=== PATIENT | female | born 1965 | race Caucasian/White ===

== ENCOUNTER 2017-01-24 16:13 | Emergency (ER) | payer OTHER ==
[~2017-01-24] VITALS: Ht 170.1 cm; Wt 90.7 kg
[~2017-01-24 16:13] MED LIST: AMOXICILLIN500 MG PO; AVALIDE; CATAPRES0.1 MG PO; DARVOCET N 1001 TAB PO; DAYPRO600 M1 PO; DIFLUCAN150 MG PO; Fioricet 325 MG1 TAB PO; HCTZ-METOPROLOL1 TA2 PO; HYDROCHLOROTH12.5 M3 PO; HYDROCODONE BIT1 T11 PO; KEFLEX500 MG PO; LISINOPRIL20 MG PO; LOSARTAN POTASS50 M1; SIMVASTATIN20 MG PO; SYNTHROID0.075 MG PO; TOPAMAX25 M1 PO; TOPAMAX50 MG PO; VICODIN 500 MG-1 TAB PO; VICODIN ES 7501 TAB PO; XANAX0.5 MG; ZOFRAN ODT4 MG SL
[2017-01-24] MEDS ORDERED: LEVOTHYROXIN0.075 M1 PO (16:21)
[2017-01-24] MEDS ORDERED: LOSARTAN POTAS100 M1 PO (16:22)
[2017-01-24] MEDS ORDERED: NEURONTIN300 MG PO (16:22)
[2017-01-24] MEDS ORDERED: CYCLOBENZAPRINE10 MG PO (16:22)
[2017-01-24 16:42] LABS: BASO # 0.1 10*3/uL (0.0-0.1); BASO % 0.7 % (0.0-1.0); EOS # 0.3 10*3/uL (0.0-0.4); EOS % 2.6 % (1.0-4.0); HEMATOCRIT 42.3 % (37.0-47.0); HEMOGLOBIN 14.2 g/dl (12.0-16.0); LYMPH # 3.2 10*3/uL (1.3-4.4); LYMPH % 30.8 % (27.0-41.0); MEAN CELL VOLUME 98.4 fl (81.0-99.0); MEAN CORPUSCULAR HGB CONC 33.6 g/dl (33.0-37.0); MEAN PLATELET VOLUME 11.4 fl (9.6-12.3); MONO # 0.8 10*3/uL (0.1-1.0); MONO % 7.8 % (3.0-9.0); NEUT # 6.1 10*3/uL (2.3-7.9); NEUT % 57.8 % (47.0-73.0); PLATELET COUNT AUTOMATED 207 10*3/uL (130-400); RED CELL DISTRI WIDTH 13.1 % (0-14.5); WHITE BLOOD COUNT 10.5 10*3/uL (4.8-10.8)
[2017-01-24 16:58] LABS: ALBUMIN 3.7 gm/dl (3.1-4.5); ALKALINE PHOSPHATASE 103 U/L (45-117); BILIRUBIN, TOTAL 0.3 mg/dl (0.2-1.0); BUN 12 mg/dl (7-24); CARBON DIOXIDE 25 mmol/L (21-32); CHLORIDE 106 mmol/L (98-107); EST GLOM FILT AFRICAN AMERICAN > 60 ml/min; GLUCOSE 96 mg/dL (65-99); SGOT/AST 50 IU/L (3-35); SGPT/ALT 50 U/L (12-78); SODIUM 141 mmol/L (136-145); TOTAL PROTEIN 7.3 gm/dL (6.4-8.2)
[2017-01-24 16:59] LABS: BILIRUBIN NEGATIVE (NEGATIVE); BLOOD 3+ (NEGATIVE); CLARITY CLOUDY (CLEAR); COLOR YELLOW (YELLOW); GLUCOSE NEGATIVE (NEGATIVE); KETONE NEGATIVE (NEGATIVE); LEUKO ESTERASE 3+ (NEGATIVE); NITRITE POSITIVE (NEGATIVE); PH 6.5 (5.0-9.0); PROTEIN 1+ (NEGATIVE); SPECIFIC GRAVITY 1.015 (1.005-1.030); UROBILINOGEN 0.2 E.U./dl (0.2-1.0)
[2017-01-24 17:05] LABS: BACTERIA 3+; RBC TNTC rbc/hpf (0-2); URINE REFLEX COMMENT YES (NO); WBC TNTC wbc/hpf (0-5)
[2017-01-24] MEDS ORDERED: ZOFRAN4 MG PO (17:09)
[2017-01-24] MEDS ORDERED: MACROBID100 M1 PO (17:09)
[2017-01-24] MEDS ORDERED: PYRIDIUM200 M1 PO (17:09)
== END 2017-01-24 17:13 | disposition home or self-care (01) ==
LOC: ED 16:13
PROVIDERS: Nurse Practitioner Family
DX: N39.0 Urinary tract infection, site not specified (principal); R31.9 Hematuria, unspecified; R03.0 Elevated blood-pressure reading, without diagnosis of hypertension; G43.909 Migraine, unspecified, not intractable, without status migrainosus; F17.200 Nicotine dependence, unspecified, uncomplicated; Z98.890 Other specified postprocedural states; Z79.899 Other long term (current) drug therapy; Z91.041 Radiographic dye allergy status

== ENCOUNTER → 2017-02-04 | Outpatient (CLI) | payer OTHER ==
[~2017-02-04] MED LIST changes: +CYCLOBENZAPRINE10 MG PO; +LEVOTHYROXIN0.075 M1 PO; +LOSARTAN POTAS100 M1 PO; +MACROBID100 M1 PO; +NEURONTIN300 MG PO; +PYRIDIUM200 M1 PO; +ZOFRAN4 MG PO
== END | disposition home or self-care (01) ==
LOC: US 14:00
DX: I65.23 Occlusion and stenosis of bilateral carotid arteries (principal)

== ENCOUNTER 2017-04-21 18:41 | Inpatient (IN) | payer OTHER ==
[2017-04-21] VITALS (9 sets, daily range): BP systolic 116–173; BP diastolic 68–86
[~2017-04-21] VITALS: Ht 170.1 cm; Wt 91.2 kg
--- NOTE | ~2017-04-21 | PR ---
[place], [place] PROGRESS NOTE NAME: REDDY FISCHER [facility] #: [id number] UNIT #: [id number] ROOM: 426 DOCTOR: CARLA FLANAGAN MD BIRTHDATE: [birth year] DOS: 04/23/2017 SUBJECTIVE: The patient is sitting up in chair. Denies any specific cardiac complaint. No chest pain, no shortness of breath, no symptomatic palpitation. OBJECTIVE: VITAL SIGNS: Blood pressure 104/52, heart rate 69, respiratory rate of 14, temperature 98.1. NECK: Good upstroke, no bruit. HEART: S1, S2 with no rub. LUNGS: Clear to auscultation. EXTREMITIES: Lower extremities, no edema. LABORATORY DATA: Troponin negative x 3. White count 9.4, hemoglobin 14.8. Potassium 4.2. GFR more than 60%. Normal thyroid function test. ASSESSMENT AND PLAN: 1. Current presentation with chest pain. So far, the stress test has been negative for ischemia with normal LV function. Echocardiogram confirmed also normal LV size and function with no evidence of wall motion abnormalities. The patient's vital signs do not allow any anti-ischemic medication at this time. From the cardiac point of view, I will continue to watch carefully. Should there be any change in symptoms, we will be considering either CTA of the coronaries or cardiac catheterization. 2. Headache with diplopia in a patient who had history of brain aneurysm . I will defer further workup to primary team. 3. The patient can be discharged home from the Cardiology point of view. Follow up with us within 1-2 weeks as an outpatient. CARLA FLANAGAN MD CM:PNTRANS [id number] CARLA FLANAGAN MD 04/23/17 1432 interface
--- NOTE | ~2017-04-21 | ST ---
[place], [place] EXERCISE STRESS TEST REPORT NAME: REDDY FISCHER [facility] #: [id number] UNIT #: [id number] ROOM: 426 DOCTOR: CARLA FLANAGAN MD BIRTHDATE: [birth year] DOS: 04/22/2017 INDICATION: Chest pain. PROCEDURE: The patient was brought into the stress lab. The procedure was explained with risks, benefits, and alternatives. Lexiscan was injected. The patient tolerated the procedure well. Resting blood pressure 138/82 with ending blood pressure 140/64. ELECTROCARDIOGRAM INTERPRETATION: The resting electrocardiogram showing sinus bradycardia, heart rate of 55. Following the infusion, there was no evidence of any significant ST or T-wave changes suggestive of myocardial ischemia. No arrhythmias were noted. SUMMARY: 1. Adequate Lexiscan stress test. 2. Negative Lexiscan stress test for stress-induced myocardial ischemia. 3. No arrhythmias were noted. 4. Nuclear images will be reported separately. CARLA FLANAGAN MD CM:STRESS:EXERCISE STRESS TEST REPORT [id number] CARLA FLANAGAN MD
--- NOTE | ~2017-04-21 | CON ---
[place], [place] REPORT OF CONSULTATION NAME: REDDY FISCHER [facility] #: [id number] UNIT #: [id number] ROOM: 426 DOCTOR: CARLA FLANAGAN MD BIRTHDATE: [birth year] DOS: REQUESTING PHYSICIAN: Dr. Lopez. REASON FOR CONSULTATION: Chest pain. ASSESSMENT: 1. Current presentation with worsening complaint of chest pain that has been going on for years. 2. Headache, blurry vision and diplopia. 3. History of brain aneurysm, status post closure with ____ at [facility] 4 years ago (no records available). 4. Hypertension. 5. Hyperlipidemia. 6. Hypothyroidism. 7. Obesity with high probability of sleep apnea (reported loud snoring). 8. Known case of IVP DYE ALLERGY. 9. Active tobacco abuse. 10. Significant early family history of heart disease. PLAN: 1. Cycle cardiac enzymes. 2. Keep patient n.p.o. for a Lexiscan stress test. 3. Enteric coated aspirin 81 mg. 4. No option for beta jen in view patient profound bradycardia on presentation. 5. Vital sign does not support any meds such as Imdur/nitroglycerin. 6. Consider Neurology consultation and workup for the patient complains of blurry vision and diplopia. 7. Cardiac catheterization will be considered for continue cardiac complaint. 8. Smoking cessation. 9. Highly consider sleep study to rule out obstructive sleep apnea. 10. Early followup upon discharge with our clinic here in [place] within 1-2 weeks. HISTORY AND PHYSICAL: The patient is a pleasant 51-year-old female unknown to our practice, was referred by Dr. Lopez for further evaluation with complaint of chest pain that apparently has been going on for the past 10 years. The pain is left-sided substernal. It is heavy and wax and wane off and on every few weeks and occasionally months in the past. Over the past few days, the patient has significant increase in frequency and intensity of these episodes. Now, it appears to be steady. It did reach almost 8/10. The patient started getting slightly nauseated and diaphoretic. Never had any vomiting. The pain has no relation to activity. Again over the past few days, it had been quite steady. It does wax and wane between 5 and 8. The patient sleeps on one pillow with no reported PND, orthopnea or pedal edema. Denies any symptomatic palpitation or any associated dizziness, lightheadedness or near syncope. No PND, orthopnea or pedal edema. The patient does report loud snoring. The patient reporting some weight gain recently, even though she maintains stable appetite. [place], [place] REPORT OF CONSULTATION NAME: REDDY FISCHER UNIT #: [id number] ROOM: 426 DOCTOR: CARLA FLANAGAN MD BIRTHDATE: [birth year] FAMILY HISTORY: The patient's mother at age 75 of pancreatic cancer, but had bypass surgery in her 50s. Her father had his bypass surgery at age 62. Her brother suddenly at age 47 of myocardial infarction. She has still one more brother alive. No sister, though. CURRENT MEDICATIONS: On presentation include Lexapro, Zocor, Cozaar, hydrochlorothiazide, aspirin, Protonix, Synthroid, Xanax, [place], Dulcolax, MOM and aspirin. ALLERGIES: THE PATIENT IS ALLERGIC TO IVP DYE. REVIEW OF SYSTEMS: Currently, the patient denies any headache, diplopia or blurry vision. Denies any headache. Admit to diplopia and blurry vision. No fever, no chills. The patient admits or night sweats. No abdominal pain, no bright red blood per rectum or tarry stools. The patient admits to joint pain and muscular pain. The patient admits to anxiety and depression. No polyuria, no polydipsia, no skin rash. Review of all other systems has been negative. PHYSICAL EXAMINATION: GENERAL: The patient is alert, oriented x 3, quite pleasant. The patient sitting up in a chair, does not appear in any distress. VITAL SIGNS: Blood pressure 119/61, heart rate 56, respiratory rate of 14, temperature 98.2. HEENT: Extraocular muscles intact. Pupils equal, round, and reactive to light. Conjunctivae: No pallor. Throat: No petechiae. NECK: Good carotid upstroke. Unable to appreciate any bruit, no lymphadenopathy, no thyromegaly. HEART: S1, S2 with distant heart sound. ABDOMEN: Unable to appreciate any masses or bruits. LOWER EXTREMITIES: No significant edema with faint distal pulses. NEUROLOGIC: Grossly nonfocal. SKIN: No significant rash. LABORATORY DATA: White count 10.0, hemoglobin 14.9. Chemistry: Potassium 3.5, creatinine 0.71, GFR more than 60%. Troponin less than 0.015. CARLA FLANAGAN MD CM:CONSTR:REPORT OF CONSULTATION 1209 04/23/17 0534 interface
[2017-04-21 19:02] LABS: BASO # 0.1 10*3/uL (0.0-0.1); BASO % 0.8 % (0.0-1.0); EOS # 0.3 10*3/uL (0.0-0.4); EOS % 2.5 % (1.0-4.0); HEMATOCRIT 45.7 % (37.0-47.0); HEMOGLOBIN 15.6 g/dl (12.0-16.0); LYMPH # 4.4 10*3/uL (1.3-4.4); LYMPH % 36.5 % (27.0-41.0); MEAN CELL VOLUME 98.1 fl (81.0-99.0); MEAN CORPUSCULAR HGB 33.5 pg (27.0-31.0); MEAN CORPUSCULAR HGB CONC 34.1 g/dl (33.0-37.0); MEAN PLATELET VOLUME 11.1 fl (9.6-12.3); MONO # 0.8 10*3/uL (0.1-1.0); MONO % 6.6 % (3.0-9.0); NEUT # 6.4 10*3/uL (2.3-7.9); NEUT % 53.4 % (47.0-73.0); PLATELET COUNT AUTOMATED 223 10*3/uL (130-400); RED BLOOD COUNT 4.66 10*6/uL (4.10-5.10); RED CELL DISTRI WIDTH 13.7 % (0-14.5); WHITE BLOOD COUNT 12.1 10*3/uL (4.8-10.8)
[2017-04-21 19:15] LABS: PROTHROMBIN TIME 10.7 SECONDS (9.0-12.4)
[2017-04-21 19:20] LABS: ALBUMIN 4.1 gm/dl (3.1-4.5); ALKALINE PHOSPHATASE 102 U/L (45-117); BILIRUBIN, TOTAL 0.3 mg/dl (0.2-1.0); BUN 11 mg/dl (7-24); CARBON DIOXIDE 21 mmol/L (21-32); CHLORIDE 104 mmol/L (98-107); EST GLOM FILT AFRICAN AMERICAN > 60 ml/min; GLUCOSE 94 mg/dL (65-99); MAGNESIUM 2.2 mg/dL (1.5-2.1); POTASSIUM 4.3 mmol/L (3.5-5.1); SGOT/AST 92 IU/L (3-35); SGPT/ALT 70 U/L (12-78); SODIUM 135 mmol/L (136-145); TOTAL PROTEIN 8.5 gm/dL (6.4-8.2)
[2017-04-21 19:21] LABS: TROPONIN I < 0.015 ng/ml (<0.045)
[2017-04-21] MEDS ORDERED: ASPIRIN ADULT L81 M1 PO (22:55)
[2017-04-21] MEDS ORDERED: COLACE100 MG PO (22:56)
[2017-04-21] MEDS ORDERED: NORCO 5-325 TA1 EACH PO (22:57)
[2017-04-22] VITALS: BP 120/69
[2017-04-22 05:13] LABS: BASO # 0.1 10*3/uL (0.0-0.1); BASO % 0.7 % (0.0-1.0); EOS # 0.4 10*3/uL (0.0-0.4); EOS % 3.6 % (1.0-4.0); HEMATOCRIT 45.2 % (37.0-47.0); HEMOGLOBIN 14.9 g/dl (12.0-16.0); LYMPH # 4.4 10*3/uL (1.3-4.4); LYMPH % 43.8 % (27.0-41.0); MEAN CELL VOLUME 99.8 fl (81.0-99.0); MEAN CORPUSCULAR HGB 32.9 pg (27.0-31.0); MEAN PLATELET VOLUME 11.7 fl (9.6-12.3); MONO # 0.6 10*3/uL (0.1-1.0); MONO % 5.7 % (3.0-9.0); NEUT # 4.6 10*3/uL (2.3-7.9); NEUT % 45.9 % (47.0-73.0); PLATELET COUNT AUTOMATED 191 10*3/uL (130-400); RED BLOOD COUNT 4.53 10*6/uL (4.10-5.10); RED CELL DISTRI WIDTH 13.8 % (0-14.5)
[2017-04-22 05:34] LABS: BUN 10 mg/dl (7-24); CARBON DIOXIDE 25 mmol/L (21-32); CHLORIDE 102 mmol/L (98-107); CHOLESTEROL 233 mg/dL (<200); EST GLOM FILT AFRICAN AMERICAN > 60 ml/min; FREE T4 0.86 ng/dl (0.76-1.46); GLUCOSE 105 mg/dL (65-99); HDL CHOLESTEROL 37 mg/dl (40-60); LDL CHOLESTEROL 133 mg/dL (9-159); POTASSIUM 3.5 mmol/L (3.5-5.1); SODIUM 137 mmol/L (136-145); TRIGLYCERIDES 314 mg/dl (<150); VLDL CHOLESTEROL 63 mg/dL (6-40)
[2017-04-22 07:05] LABS: FOLIC ACID 8.92 ng/mL (>5.38)
[2017-04-22 07:07] LABS: HEMOGLOBIN A1c 5.3 % (4.8-5.6)
[2017-04-22 08:00] VITALS: BP 119/61
[2017-04-22 12:00] VITALS: BP 126/76
[2017-04-22 15:30] VITALS: BP 98/66
[2017-04-22 16:00] VITALS: BP 118/57
[2017-04-22 20:00] VITALS: BP 106/58
[2017-04-23] VITALS: BP 116/55
[2017-04-23 05:52] LABS: BASO # 0.1 10*3/uL (0.0-0.1); BASO % 0.7 % (0.0-1.0); EOS # 0.3 10*3/uL (0.0-0.4); EOS % 3.5 % (1.0-4.0); HEMATOCRIT 44.4 % (37.0-47.0); HEMOGLOBIN 14.8 g/dl (12.0-16.0); LYMPH # 3.9 10*3/uL (1.3-4.4); LYMPH % 41.8 % (27.0-41.0); MEAN CELL VOLUME 101.6 fl (81.0-99.0); MEAN CORPUSCULAR HGB 33.9 pg (27.0-31.0); MEAN CORPUSCULAR HGB CONC 33.3 g/dl (33.0-37.0); MEAN PLATELET VOLUME 11.5 fl (9.6-12.3); MONO # 0.7 10*3/uL (0.1-1.0); NEUT # 4.4 10*3/uL (2.3-7.9); NEUT % 46.8 % (47.0-73.0); PLATELET COUNT AUTOMATED 200 10*3/uL (130-400); RED BLOOD COUNT 4.37 10*6/uL (4.10-5.10); RED CELL DISTRI WIDTH 13.6 % (0-14.5); WHITE BLOOD COUNT 9.4 10*3/uL (4.8-10.8)
[2017-04-23 05:55] LABS: BUN 11 mg/dl (7-24); CARBON DIOXIDE 29 mmol/L (21-32); CHLORIDE 105 mmol/L (98-107); EST GLOM FILT AFRICAN AMERICAN > 60 ml/min; GLUCOSE 103 mg/dL (65-99); POTASSIUM 4.2 mmol/L (3.5-5.1); SODIUM 140 mmol/L (136-145)
[2017-04-23 08:00] VITALS: BP 104/52
[2017-04-23 12:00] VITALS: BP 110/53
[2017-04-23 16:00] VITALS: BP 106/65
[2017-04-23] MEDS ORDERED: NITROSTAT0.4 MG SL (16:25)
[2017-04-24 08:09] LABS: RHEUMATOID ARTHRITIS FACTOR <10.0 IU/mL (0.0-13.9)
== END 2017-04-23 17:00 | disposition home or self-care (01) | DRG 313 ==
LOC: ED 18:41 → EDHOLD 19:42 → 4E 19:42
PROVIDERS: Emergency Medicine; Family Medicine; Internal Medicine
PROC: 4A02XM4 Measurement of Cardiac Total Activity, External Approach (ICD-10-PCS; principal; 2017-04-22)
PROC: 3E073KZ Introduction of Other Diagnostic Substance into Coronary Artery, Percutaneous Approach (ICD-10-PCS; 2017-04-22)
DX: R07.89 Other chest pain (principal); I10 Essential (primary) hypertension; E03.9 Hypothyroidism, unspecified; E78.5 Hyperlipidemia, unspecified; G43.119 Migraine with aura, intractable, without status migrainosus; D72.829 Elevated white blood cell count, unspecified; F17.210 Nicotine dependence, cigarettes, uncomplicated; E66.9 Obesity, unspecified; Z71.6 Tobacco abuse counseling; Z87.440 Personal history of urinary (tract) infections; Z98.1 Arthrodesis status; Z68.31 Body mass index [BMI] 31.0-31.9, adult; Z90.49 Acquired absence of other specified parts of digestive tract; Z91.041 Radiographic dye allergy status; Z79.82 Long term (current) use of aspirin; Z79.899 Other long term (current) drug therapy; Z82.49 Family history of ischemic heart disease and other diseases of the circulatory system; Z80.0 Family history of malignant neoplasm of digestive organs

== ENCOUNTER 2018-07-11 19:14 | Emergency (ER) | payer OTHER ==
[~2018-07-11] VITALS: Ht 170.1 cm; Wt 90.7 kg
[~2018-07-11 19:14] MED LIST changes: +ASPIRIN ADULT L81 M1 PO; +COLACE100 MG PO; +KEFLEX500 M1 PO; +NITROSTAT0.4 MG SL; +NORCO 5-325 TA1 EACH PO
== END 2018-07-11 20:19 | disposition home or self-care (01) ==
LOC: ED 19:14
DX: Z48.00 Encounter for change or removal of nonsurgical wound dressing (principal); I10 Essential (primary) hypertension; E03.9 Hypothyroidism, unspecified; G43.909 Migraine, unspecified, not intractable, without status migrainosus; F17.200 Nicotine dependence, unspecified, uncomplicated; Z91.041 Radiographic dye allergy status; Z79.899 Other long term (current) drug therapy

== ENCOUNTER 2018-07-27 22:28 | Emergency (ER) | payer OTHER ==
[~2018-07-27] VITALS: Ht 170.1 cm
== END 2018-07-27 23:29 | disposition home or self-care (01) ==
LOC: ED 22:28
DX: M79.604 Pain in right leg (principal); F17.200 Nicotine dependence, unspecified, uncomplicated; Z48.01 Encounter for change or removal of surgical wound dressing; Z91.041 Radiographic dye allergy status; Z79.899 Other long term (current) drug therapy; Z90.49 Acquired absence of other specified parts of digestive tract

== ENCOUNTER 2018-10-06 04:12 | Emergency (ER) | payer OTHER ==
[~2018-10-06] VITALS: Ht 170.1 cm; Wt 90.7 kg
[2018-10-06] MEDS ORDERED: ATARAX,VISTARIL50 MG PO (04:45)
[2018-10-06] MEDS ORDERED: FLUCONAZOLE100 MG PO (04:46)
== END 2018-10-06 05:42 | disposition home or self-care (01) ==
LOC: ED 04:12
DX: L30.9 Dermatitis, unspecified (principal); L30.4 Erythema intertrigo; E78.5 Hyperlipidemia, unspecified; I10 Essential (primary) hypertension; E03.9 Hypothyroidism, unspecified; G43.909 Migraine, unspecified, not intractable, without status migrainosus; F17.200 Nicotine dependence, unspecified, uncomplicated; Z91.041 Radiographic dye allergy status; Z79.899 Other long term (current) drug therapy; Z90.49 Acquired absence of other specified parts of digestive tract

== ENCOUNTER 2018-11-13 12:26 | Emergency (ER) | payer OTHER ==
[~2018-11-13] VITALS: Ht 170.1 cm; Wt 86.2 kg
[~2018-11-13 12:26] MED LIST changes: +ATARAX,VISTARIL50 MG PO; +FLUCONAZOLE100 MG PO
[2018-11-13 13:05] LABS: BASO # 0.1 10*3/uL (0.0-0.1); EOS # 0.4 10*3/uL (0.0-0.4); EOS % 4.6 % (1.0-4.0); HEMATOCRIT 38.7 % (37.0-47.0); HEMOGLOBIN 12.5 g/dl (12.0-16.0); LYMPH # 2.7 10*3/uL (1.3-4.4); LYMPH % 30.4 % (27.0-41.0); MEAN CELL VOLUME 102.7 fl (81.0-99.0); MEAN CORPUSCULAR HGB 33.2 pg (27.0-31.0); MEAN CORPUSCULAR HGB CONC 32.3 g/dl (33.0-37.0); MEAN PLATELET VOLUME 11.3 fl (9.6-12.3); MONO # 0.6 10*3/uL (0.1-1.0); MONO % 6.5 % (3.0-9.0); NEUT # 5.1 10*3/uL (2.3-7.9); NEUT % 57.3 % (47.0-73.0); PLATELET COUNT AUTOMATED 128 10*3/uL (130-400); RED BLOOD COUNT 3.77 10*6/uL (4.10-5.10); RED CELL DISTRI WIDTH 13.8 % (0-14.5); WHITE BLOOD COUNT 8.8 10*3/uL (4.8-10.8)
[2018-11-13] MEDS ORDERED: CLARITIN10 MG PO (13:16)
[2018-11-13] MEDS ORDERED: PEPCID20 MG PO (13:16)
[2018-11-13] MEDS ORDERED: MEDROL DOSEPAK4 MG PO (13:16)
[2018-11-13 13:30] LABS: ALBUMIN 3.1 gm/dl (3.1-4.5); ALKALINE PHOSPHATASE 139 U/L (45-117); BUN 10 mg/dl (7-24); CHLORIDE 109 mmol/L (98-107); CREATININE 0.84 mg/dL (0.55-1.02); POTASSIUM 3.7 mmol/L (3.5-5.1); SGOT/AST 83 IU/L (3-35); SGPT/ALT 63 U/L (12-78); SODIUM 142 mmol/L (136-145); TOTAL PROTEIN 6.4 gm/dL (6.4-8.2)
[2019-01-07] MEDS ORDERED: Bactroban Oint22 GM T (00:48)
[2019-01-07] MEDS ORDERED: VISTARIL25 MG PO (01:09)
== END 2018-11-13 14:09 | disposition home or self-care (01) ==
LOC: ED 12:26
PROVIDERS: Emergency Medicine
DX: R21 Rash and other nonspecific skin eruption (principal); L29.9 Pruritus, unspecified; L53.9 Erythematous condition, unspecified; E78.5 Hyperlipidemia, unspecified; I10 Essential (primary) hypertension; E03.9 Hypothyroidism, unspecified; F17.200 Nicotine dependence, unspecified, uncomplicated; Z91.041 Radiographic dye allergy status; Z79.899 Other long term (current) drug therapy

== ENCOUNTER → 2018-11-15 | Outpatient (CLI) | payer OTHER ==
[~2018-11-15] MED LIST changes: +AMBIEN5 MG PO; +Bactroban Oint22 GM T; +CLARITIN10 MG PO; +CORTISONE28 GM T; +DOXYCYCLINE100 M3 PO; +GUANFACINE HCL1 MG PO; +HYDR25T PO; +HYDROXYZINE HCL25 MG PO; +LAMICTAL150 MG PO; +LEVETIRACETAM500 MG PO; +MEDROL DOSEPAK4 MG PO; +PEPCID20 MG PO; +PREDNISONE10 MG PO; +RITALIN10 MG PO; +SANTYL30 GM T; +VISTARIL25 MG PO; +VITAMIN C500 M4 PO; +XANAX0.25 MG PO
== END | disposition home or self-care (01) ==
LOC: WOUNDCARE 04:21
DX: S91.031A Puncture wound without foreign body, right ankle, initial encounter (principal); I10 Essential (primary) hypertension; E03.9 Hypothyroidism, unspecified; G43.909 Migraine, unspecified, not intractable, without status migrainosus; E78.5 Hyperlipidemia, unspecified; F17.200 Nicotine dependence, unspecified, uncomplicated; F10.20 Alcohol dependence, uncomplicated; X58.XXXA Exposure to other specified factors, initial encounter; Y93.89 Activity, other specified; Y92.89 Other specified places as the place of occurrence of the external cause; Y99.8 Other external cause status

== ENCOUNTER → 2018-11-22 | Outpatient (CLI) | payer OTHER | END | disposition home or self-care (01) | LOC: WOUNDCARE 02:07 | DX: S91.001D Unspecified open wound, right ankle, subsequent encounter (principal); E78.5 Hyperlipidemia, unspecified; I10 Essential (primary) hypertension; E03.9 Hypothyroidism, unspecified; G43.909 Migraine, unspecified, not intractable, without status migrainosus; F17.200 Nicotine dependence, unspecified, uncomplicated; Z87.81 Personal history of (healed) traumatic fracture; X58.XXXD Exposure to other specified factors, subsequent encounter ==

== ENCOUNTER → 2018-12-20 | Outpatient (CLI) | payer OTHER | END | disposition home or self-care (01) | LOC: WOUNDCARE 02:38 | DX: S91.001D Unspecified open wound, right ankle, subsequent encounter (principal); L03.115 Cellulitis of right lower limb; I10 Essential (primary) hypertension; E78.5 Hyperlipidemia, unspecified; E03.9 Hypothyroidism, unspecified; G43.909 Migraine, unspecified, not intractable, without status migrainosus; D72.829 Elevated white blood cell count, unspecified; F17.200 Nicotine dependence, unspecified, uncomplicated; Z87.81 Personal history of (healed) traumatic fracture; X58.XXXD Exposure to other specified factors, subsequent encounter ==

== ENCOUNTER 2019-01-10 02:01 | Inpatient (IN) | payer OTHER ==
[~2019-01-10] VITALS: Ht 170.2 cm; Wt 95.7 kg
[~2019-01-10 02:01] MED LIST changes: -AMBIEN5 MG PO; -CORTISONE28 GM T; -DOXYCYCLINE100 M3 PO; -GUANFACINE HCL1 MG PO; -HYDR25T PO; -HYDROXYZINE HCL25 MG PO; -LAMICTAL150 MG PO; -LEVETIRACETAM500 MG PO; -PREDNISONE10 MG PO; -RITALIN10 MG PO; -SANTYL30 GM T; -VITAMIN C500 M4 PO; -XANAX0.25 MG PO
--- NOTE | 2019-01-10 13:15 | NUR ---
A 53, admitted to , under the services of AMY Mckeon DO with a diagnosis of CELLULITIS. Chief complaint is RASH T/O BODY, C/O ITCHING, WOUND TO RIGHT ANKLE. Patient arrived via wheel chair from [place]. Monitor applied. Initial assessment completed. Vital signs taken and recorded. AMY MCKEON DO notified of admission to the unit. Orders received. See assessment for past medical history, medications and allergies. Patient and/or family oriented to unit. [facility]. Clothing/patient valuable form completed. ASHLEY ANDREWS
[2019-01-10 13:36] VITALS: BP 126/80
[2019-01-10] MEDS ORDERED: HYDR25T PO (14:10)
[2019-01-10] MEDS ORDERED: RITALIN10 MG PO (14:11)
[2019-01-10] MEDS ORDERED: LEVETIRACETAM500 MG PO (14:12)
[2019-01-10] MEDS ORDERED: GUANFACINE HCL1 MG PO (14:13)
[2019-01-10] MEDS ORDERED: LAMICTAL150 MG PO (14:14)
[2019-01-10] MEDS ORDERED: VITAMIN C500 M4 PO (14:14)
[2019-01-10] MEDS ORDERED: CYCLOBENZAPRINE10 MG PO (14:15)
[2019-01-10] MEDS ORDERED: AMBIEN5 MG PO (14:17)
[2019-01-10] MEDS ORDERED: XANAX0.25 MG PO (14:18)
[2019-01-10] MEDS ORDERED: SANTYL30 GM T (14:19)
[2019-01-10] MEDS ORDERED: HYDROXYZINE HCL25 MG PO (14:19)
[2019-01-10] MEDS ORDERED: DOXYCYCLINE100 M3 PO (14:20)
[2019-01-10 14:47] LABS: BASO # 0.1 10*3/uL (0.0-0.1); EOS # 0.7 10*3/uL (0.0-0.4); HEMATOCRIT 44.2 % (37.0-47.0); HEMOGLOBIN 14.6 g/dl (12.0-16.0); LYMPH # 3.2 10*3/uL (1.3-4.4); LYMPH % 34.2 % (27.0-41.0); MEAN CORPUSCULAR HGB 34.4 pg (27.0-31.0); MEAN PLATELET VOLUME 11.2 fl (9.6-12.3); MONO # 0.9 10*3/uL (0.1-1.0); MONO % 9.3 % (3.0-9.0); NEUT # 4.4 10*3/uL (2.3-7.9); NEUT % 47.3 % (47.0-73.0); PLATELET COUNT AUTOMATED 145 10*3/uL (130-400); RED BLOOD COUNT 4.25 10*6/uL (4.10-5.10); RED CELL DISTRI WIDTH 13.8 % (0-14.5); WHITE BLOOD COUNT 9.2 10*3/uL (4.8-10.8)
[2019-01-10 15:08] LABS: ALBUMIN 3.6 gm/dl (3.1-4.5); ALKALINE PHOSPHATASE 108 U/L (45-117); BUN 17 mg/dl (7-24); CHLORIDE 107 mmol/L (98-107); CREATININE 0.65 mg/dL (0.55-1.02); POTASSIUM 3.9 mmol/L (3.5-5.1); SGOT/AST 53 IU/L (3-35); SGPT/ALT 49 U/L (12-78); SODIUM 139 mmol/L (136-145)
[2019-01-10 16:00] VITALS: BP 131/65
--- NOTE | 2019-01-10 17:50 | NUR ---
PT MEDICATED WITH BENEDRYL FOR COMPLAINTS OF ITCHING. WILL MONITOR.
[2019-01-10 20:00] VITALS: BP 117/59
--- NOTE | 2019-01-10 21:30 | NUR ---
IN ROOM WITH DR. GIRON TO LOOK OVER RASH. PATIENT ITCHING AND NOT BEING ABLE TO REST. NEW ORDER FOR BENADRYL 50. AND SOLUMEDROL. RASH ON FACE, RT BREAST IS OOZING, RT LEG, TORSO.
--- NOTE | 2019-01-10 21:50 | NUR ---
BENADRYL GIVEN. WILL MONITOR AND REASSESS.
--- NOTE | 2019-01-10 22:18 | NUR ---
24 HR chart check completed.
--- NOTE | 2019-01-10 22:52 | NUR ---
PATIENT STILL HAVING SEVERE ITCHING AFTER BENADRYL. ICE PACKS WERE GIVEN TO HELP WITH ITCHING. I STOPPED THE INFUSING IV VANCO FOR A SHORT TIME TO SEE IF THE ITCHING STOPPED, BUT IT CONTINUED TO GET WORSE. PATIENT ALSO STATED THAT HER FAMILY HAS HAD A PROBLEM WITH STAPH INFECTION, AND WAS WANDERING IF THAT WAS THE CASE.
[2019-01-11] VITALS: BP 119/54
--- NOTE | 2019-01-11 05:23 | NUR ---
REDDY FISCHER [id number] Please refer to the physician's history and physical for past medical history, comorbid conditions, and allergies. Diagnosis: NON HEALING WOUND RIGHT ANKLE ALLERGIC REACTION Polo Score: 22,LOW OR NO RISK WOUND DESCRIPTIONS: Wound Number: 1 Location of the wound: right medial aspect of ankle Type of wound: traumatic Thickness: Full Size: 1.4cm x 0.9cm x 0.4cm Tunneling: none Undermining: none Sinus Tract: none Presence of Exudate: Serosanguineous Amount: Light Color: Yellow, red Odor: None Periwound Skin Appearance: rash Wound edges: approximated Pain (associated with wound): none at time of assessment pt states area if very itchy How does patient state this happened? pt stated she had surgery then had a fusion which the area was scarred then bumped the scar last february and is still open now. Patient right breast has rash patchy rash noted which is draining serosanguineous. Patient states the areas are very itchy and she stated that the right breast just started draining. The area is also to the left eye and around face. Left eye is has swelling noted. No drainage to face at this time. Patient stated when she was given steriods that the pain and itchy was so much more intense. Patient stated the area is now moving toward her abdomen which it was not there yesterday. Surface the patient is resting on: Isoflex SKIN PREVENTION RECOMMENDATION: 1. Pressure redistribution support surface as appropriate 2. Elevate heels 3. Remove boots/TEDS every shift and reapply 4. Head of bed 30 degrees as tolerated 5. Assess nutrition and hydration 6. Manage moisture 7. Avoid the use of containment devices while in bed 8. Use absorptive products on surfaces limit layers of linens on bed 9. Turn and reposition every 1-2 hours in bed and every 1 hour in chair as tolerated 10. Weight shifts every 15 minutes while up in chair 11. Offloading with pillows or device to keep heels elevated off bed 12. Monitor skin at least every shift 13. Inspect under medical devices twice a day WOUND TREATMENT RECOMMENDATIONS: Consult ID for rash. Full thickness guidelines: Cleanse right medial aspect of ankle with nss and apply sureprep around the wound therahoney to wound bed cover with 2x2 then wrap with kerlix every other day and prn for soiling. Dr. Moreno is already on consult since patient follows with him in the wound care center. Follow up with dermatology upon d/c for rash. Follow up with real estate loan processor regarding area noted to left eye.
--- NOTE | 2019-01-11 05:34 | NUR ---
PATIENT UP MOST OF THE NIGHT ITCHING, BENADRYL NOT EFFECTIVE.
--- NOTE | 2019-01-11 05:38 | NUR ---
Spoke with Dr. Phillips regarding patient rash and arterial studies. He stated Dr. Moreno was aware.
[2019-01-11 06:36] LABS: BASO % 0.2 % (0.0-1.0); EOS % 0.3 % (1.0-4.0); HEMATOCRIT 42.9 % (37.0-47.0); HEMOGLOBIN 14.4 g/dl (12.0-16.0); LYMPH # 1.4 10*3/uL (1.3-4.4); LYMPH % 15.3 % (27.0-41.0); MEAN CELL VOLUME 103.4 fl (81.0-99.0); MEAN CORPUSCULAR HGB 34.7 pg (27.0-31.0); MEAN CORPUSCULAR HGB CONC 33.6 g/dl (33.0-37.0); MEAN PLATELET VOLUME 11.6 fl (9.6-12.3); MONO # 0.2 10*3/uL (0.1-1.0); MONO % 1.8 % (3.0-9.0); NEUT # 7.2 10*3/uL (2.3-7.9); NEUT % 81.6 % (47.0-73.0); PLATELET COUNT AUTOMATED 151 10*3/uL (130-400); RED BLOOD COUNT 4.15 10*6/uL (4.10-5.10); RED CELL DISTRI WIDTH 13.5 % (0-14.5); WHITE BLOOD COUNT 8.8 10*3/uL (4.8-10.8)
[2019-01-11 06:56] LABS: BUN 14 mg/dl (7-24); CHLORIDE 110 mmol/L (98-107); CREATININE 0.71 mg/dL (0.55-1.02); POTASSIUM 3.9 mmol/L (3.5-5.1); SODIUM 140 mmol/L (136-145)
[2019-01-11 08:00] VITALS: BP 137/68
--- NOTE | 2019-01-11 08:27 | NUR ---
Spoke with Dr. Moreno regarding wound care recommendations he stated he doesn't want a culture of the wound at this time. He also stated patient my need transfered to dermatology.
--- NOTE | 2019-01-11 08:39 | NUR ---
Dr. Garcia notified of wound care recommendations.
--- NOTE | 2019-01-11 08:41 | NUR ---
Dr. Garcia notified of The conversation with Dr. Moreno about no culture and possible transfer needing derm.
--- NOTE | 2019-01-11 12:09 | NUR ---
Scaffold Erector in to talk to patient. Patient states lives at HOME with WITH EX . There are FEW steps in the home. Physician: NONE Pharmacy: [facility] Home health services: NONE Patient's level of ADLs: INDEPENDENT Patient has working utilities: YES DME: NONE Follow-up physician's appointment after d/c: WILL FIND ONE AND MAKE APPOINTMENT AFTER DISCHARGE Does patient want to access PORTAL?: NO Discharge plan PT LIVES AT HOME WITH HER EXHUSBAND. STATES SHE WAS RECENTLY HOMELESS, BUT IS LIVING WITH HIM NOW. DENIES ANY NEEDS ON DISCHARGE. STATES SHE WILL HAVE A RIDE HOME. WILL CONTINUE TO FOLLOW.. KARINA KENNEDY
[2019-01-11 16:00] VITALS: BP 116/73
--- NOTE | 2019-01-11 18:18 | NUR ---
PT RESTING COMFORTABLY. SOME ANXIETY OVER CURRENT MEDICAL STATE. INFECTIOUS DISEASE CONSULTED FOR RASH. GAVE ATIVAN ORDERRED. (SEE EMAR) CONTINUING TO MONITOR.
--- NOTE | 2019-01-11 21:40 | NUR ---
PATIENT STILL ITCHING, PATIENT WORRIED ABOUT TAKING BENADRYL, ASKED FOR SOMETHING TO HELP HER RELAX AND SLEEP. XANAX WAS GIVEN. WILL MONITOR AND REASSESS.
--- NOTE | 2019-01-11 23:20 | NUR ---
PATIENT RESTING, XANAX EFFECTIVE.
[2019-01-12] VITALS: BP 112/54
--- NOTE | 2019-01-12 02:40 | NUR ---
PATIENT AWOKE WITH ITCHING, DOESNT WANT BENADRYL, STATED "I THINK THE ATIVAN WILL HELP ME RELAX AND GO BACK TO SLEEP." ATIVAN GIVEN. WILL MONITOR AND REASSESS.
--- NOTE | 2019-01-12 03:22 | NUR ---
24 HR chart check completed.
[2019-01-12 07:53] LABS: ALBUMIN 3.2 gm/dl (3.1-4.5); ALKALINE PHOSPHATASE 84 U/L (45-117); BUN 12 mg/dl (7-24); CHLORIDE 110 mmol/L (98-107); CREATININE 0.58 mg/dL (0.55-1.02); POTASSIUM 4.1 mmol/L (3.5-5.1); SGOT/AST 30 IU/L (3-35); SGPT/ALT 42 U/L (12-78); SODIUM 143 mmol/L (136-145); TOTAL PROTEIN 6.5 gm/dL (6.4-8.2)
[2019-01-12 08:00] VITALS: BP 107/52
--- NOTE | 2019-01-12 08:45 | NUR ---
MEDICATED WITH XANAX PER PRN ORDER FOR ANXIETY/ITCHING. WILL MONITOR FOR EFFECTIVENESS.
[2019-01-12] MEDS ORDERED: CORTISONE28 GM T (10:38)
[2019-01-12] MEDS ORDERED: PREDNISONE10 MG PO (10:38)
[2019-01-12] MEDS ORDERED: HYDROXYZINE HCL25 MG PO (10:38)
--- NOTE | 2019-01-12 11:13 | NUR ---
PT WILL GO HOME WITH NO NEEDS. WILL CONTINUE TO FOLLOW.
--- NOTE | 2019-01-12 13:25 | NUR ---
D/C PHOTOS OBTAINED AT THIS TIME.
--- NOTE | 2019-01-12 13:25 | NUR ---
Discharge instructions reviewed with patient/family. Patient receptive and verbalizes understanding. Follow-up care arranged. Written instructions given to patient/family. IV site removed. JOSEPHINE AL
== END 2019-01-12 13:25 | disposition home or self-care (01) | DRG 607 ==
LOC: WOUNDCARE 02:01 → 5E 12:58 → WOUNDCARE 15:25 → 5E 01-12 13:25
PROVIDERS: Internal Medicine; Student in an Organized Health Care Education/Training Program; ADMIT Internal Medicine
DX: L29.8 Other pruritus (principal); L97.919 Non-pressure chronic ulcer of unspecified part of right lower leg with unspecified severity; K59.00 Constipation, unspecified; R56.9 Unspecified convulsions; R73.9 Hyperglycemia, unspecified; I10 Essential (primary) hypertension; F41.9 Anxiety disorder, unspecified; D72.1 Eosinophilia; E03.9 Hypothyroidism, unspecified; R23.4 Changes in skin texture; E78.5 Hyperlipidemia, unspecified; L30.9 Dermatitis, unspecified; G43.909 Migraine, unspecified, not intractable, without status migrainosus; F32.9 Major depressive disorder, single episode, unspecified; F90.9 Attention-deficit hyperactivity disorder, unspecified type; T78.40XS Allergy, unspecified, sequela; Z98.1 Arthrodesis status; Z90.49 Acquired absence of other specified parts of digestive tract; Z82.49 Family history of ischemic heart disease and other diseases of the circulatory system; Z80.0 Family history of malignant neoplasm of digestive organs; Z91.041 Radiographic dye allergy status; Z79.899 Other long term (current) drug therapy

== ENCOUNTER → 2019-02-07 | Outpatient (CLI) | payer OTHER ==
[~2019-02-07] MED LIST changes: +AMBIEN5 MG PO; +CORTISONE28 GM T; +DOXYCYCLINE100 M3 PO; +GUANFACINE HCL1 MG PO; +HYDR25T PO; +HYDROXYZINE HCL25 MG PO; +LAMICTAL150 MG PO; +LEVETIRACETAM500 MG PO; +PREDNISONE10 MG PO; +RITALIN10 MG PO; +SANTYL30 GM T; +VITAMIN C500 M4 PO; +XANAX0.25 MG PO
== END | disposition home or self-care (01) ==
LOC: WOUNDCARE 01:41
DX: S91.001D Unspecified open wound, right ankle, subsequent encounter (principal); I10 Essential (primary) hypertension; E78.5 Hyperlipidemia, unspecified; E03.9 Hypothyroidism, unspecified; G43.909 Migraine, unspecified, not intractable, without status migrainosus; F17.200 Nicotine dependence, unspecified, uncomplicated; Z87.81 Personal history of (healed) traumatic fracture; X58.XXXD Exposure to other specified factors, subsequent encounter

== ENCOUNTER → 2019-02-21 | Outpatient (CLI) | payer OTHER | END | disposition home or self-care (01) | LOC: WOUNDCARE 08:31 | DX: S91.001D Unspecified open wound, right ankle, subsequent encounter (principal); I10 Essential (primary) hypertension; E78.5 Hyperlipidemia, unspecified; E03.9 Hypothyroidism, unspecified; G43.909 Migraine, unspecified, not intractable, without status migrainosus; F17.200 Nicotine dependence, unspecified, uncomplicated; Z87.81 Personal history of (healed) traumatic fracture; X58.XXXD Exposure to other specified factors, subsequent encounter ==

== ENCOUNTER → 2019-02-28 | Outpatient (CLI) | payer OTHER | END | disposition home or self-care (01) | LOC: WOUNDCARE 00:17 | DX: S91.001D Unspecified open wound, right ankle, subsequent encounter (principal); L03.115 Cellulitis of right lower limb; E78.5 Hyperlipidemia, unspecified; I10 Essential (primary) hypertension; E03.9 Hypothyroidism, unspecified; G43.909 Migraine, unspecified, not intractable, without status migrainosus; F17.200 Nicotine dependence, unspecified, uncomplicated; Z87.81 Personal history of (healed) traumatic fracture; X58.XXXD Exposure to other specified factors, subsequent encounter ==

== ENCOUNTER → 2019-03-07 | Outpatient (CLI) | payer OTHER | END | disposition home or self-care (01) | LOC: WOUNDCARE 00:11 | DX: S91.001D Unspecified open wound, right ankle, subsequent encounter (principal); L03.115 Cellulitis of right lower limb; E78.5 Hyperlipidemia, unspecified; I10 Essential (primary) hypertension; E03.9 Hypothyroidism, unspecified; G43.909 Migraine, unspecified, not intractable, without status migrainosus; Z87.81 Personal history of (healed) traumatic fracture; X58.XXXD Exposure to other specified factors, subsequent encounter ==

== ENCOUNTER 2019-06-20 17:23 | Emergency (ER) | payer OTHER ==
[~2019-06-20] VITALS: Ht 170.1 cm; Wt 90.7 kg
--- NOTE | ~2019-06-20 | EKG ---
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
--- NOTE | ~2019-06-20 | EKG ---
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
[2019-06-20 18:05] LABS: BASO # 0.1 10*3/uL (0.0-0.1); BASO % 0.7 % (0.0-1.0); EOS # 0.1 10*3/uL (0.0-0.4); EOS % 0.6 % (1.0-4.0); HEMATOCRIT 44.9 % (37.0-47.0); HEMOGLOBIN 14.9 g/dl (12.0-16.0); LYMPH # 1.2 10*3/uL (1.3-4.4); LYMPH % 13.4 % (27.0-41.0); MEAN CORPUSCULAR HGB 33.2 pg (27.0-31.0); MEAN CORPUSCULAR HGB CONC 33.2 g/dl (33.0-37.0); MONO # 0.6 10*3/uL (0.1-1.0); MONO % 7.2 % (3.0-9.0); NEUT # 6.7 10*3/uL (2.3-7.9); NEUT % 77.8 % (47.0-73.0); PLATELET COUNT AUTOMATED 105 10*3/uL (130-400); RED BLOOD COUNT 4.49 10*6/uL (4.10-5.10); RED CELL DISTRI WIDTH 14.5 % (0-14.5); WHITE BLOOD COUNT 8.6 10*3/uL (4.8-10.8)
[2019-06-20 18:18] LABS: ACT PARTIAL THROMBO TIME 25.1 SECONDS (20.0-32.1); INTERNATIONAL NORM RATIO 1.1 (2.0-3.5)
[2019-06-20 18:19] LABS: ALBUMIN 3.8 gm/dl (3.1-4.5); ALKALINE PHOSPHATASE 129 U/L (45-117); BUN 8 mg/dl (7-24); CHLORIDE 105 mmol/L (98-107); CREATININE 0.63 mg/dL (0.55-1.02); POTASSIUM 3.9 mmol/L (3.5-5.1); SGOT/AST 98 IU/L (3-35); SGPT/ALT 63 U/L (12-78); SODIUM 134 mmol/L (136-145); TOTAL PROTEIN 7.3 gm/dL (6.4-8.2)
[2019-06-20 18:20] LABS: TROPONIN I < 0.015 ng/ml (<0.045)
[2019-06-20 20:10] LABS: BILIRUBIN NEGATIVE (NEGATIVE); BLOOD NEGATIVE (NEGATIVE); CLARITY SL CLOUDY (CLEAR); COLOR YELLOW (YELLOW); GLUCOSE NEGATIVE (NEGATIVE); KETONE NEGATIVE (NEGATIVE); LEUKO ESTERASE NEGATIVE (NEGATIVE); NITRITE NEGATIVE (NEGATIVE); PH 6.5 (5.0-9.0); UROBILINOGEN 0.2 E.U./dl (0.2-1.0)
[2019-06-20 20:17] LABS: EPITHELIAL CELLS 0-2
[2019-06-20] MEDS ORDERED: LEVAQUIN750 M1 PO (22:24)
== END 2019-06-20 22:45 | disposition home or self-care (01) ==
LOC: ED 17:23
PROVIDERS: Emergency Medicine; Nurse Practitioner Family
DX: J18.1 Lobar pneumonia, unspecified organism (principal); E78.5 Hyperlipidemia, unspecified; E03.9 Hypothyroidism, unspecified; I10 Essential (primary) hypertension; G43.909 Migraine, unspecified, not intractable, without status migrainosus; F17.200 Nicotine dependence, unspecified, uncomplicated; Z91.041 Radiographic dye allergy status; Z79.899 Other long term (current) drug therapy; Z90.49 Acquired absence of other specified parts of digestive tract

== ENCOUNTER 2019-08-18 06:59 | Emergency (ER) | payer OTHER ==
[~2019-08-18] VITALS: Ht 172.7 cm; Wt 90.7 kg
[~2019-08-18 06:59] MED LIST changes: +LEVAQUIN750 M1 PO
== END 2019-08-18 09:09 | disposition home or self-care (01) ==
LOC: ED 06:59
DX: G43.909 Migraine, unspecified, not intractable, without status migrainosus (principal); E78.5 Hyperlipidemia, unspecified; I10 Essential (primary) hypertension; E03.9 Hypothyroidism, unspecified; F17.200 Nicotine dependence, unspecified, uncomplicated; Z91.041 Radiographic dye allergy status; Z79.2 Long term (current) use of antibiotics; Z79.899 Other long term (current) drug therapy; Z90.49 Acquired absence of other specified parts of digestive tract

== ENCOUNTER 2020-04-25 23:52 | Emergency (ER) | payer OTHER ==
[~2020-04-25] VITALS: Ht 170.1 cm; Wt 90.7 kg
[2020-04-26 01:37] LABS: BILIRUBIN NEGATIVE (NEGATIVE); BLOOD NEGATIVE (NEGATIVE); CLARITY CLEAR (CLEAR); COLOR YELLOW (YELLOW); GLUCOSE NEGATIVE (NEGATIVE); KETONE NEGATIVE (NEGATIVE); SPECIFIC GRAVITY 1.005 (1.005-1.030)
[2020-04-26 01:40] LABS: LEUKO ESTERASE TRACE (NEGATIVE); NITRITE NEGATIVE (NEGATIVE); UROBILINOGEN 0.2 E.U./dl (0.2-1.0)
[2020-04-26 01:44] LABS: BACTERIA TRACE; RBC 0-2 rbc/hpf (0-2)
[2020-04-26] MEDS ORDERED: ZANAFLEX2 M1 PO (02:17)
== END 2020-04-26 02:39 | disposition home or self-care (01) ==
LOC: ED 23:52
PROVIDERS: Emergency Medicine
DX: S39.012A Strain of muscle, fascia and tendon of lower back, initial encounter (principal); I10 Essential (primary) hypertension; G43.909 Migraine, unspecified, not intractable, without status migrainosus; E03.9 Hypothyroidism, unspecified; F17.200 Nicotine dependence, unspecified, uncomplicated; Z91.041 Radiographic dye allergy status; Z79.899 Other long term (current) drug therapy; X58.XXXA Exposure to other specified factors, initial encounter; Y93.44 Activity, trampolining; Y92.89 Other specified places as the place of occurrence of the external cause; Y99.8 Other external cause status

== ENCOUNTER 2020-11-06 21:14 | Inpatient (IN) | payer MEDICARE, MEDICAID ==
[~2020-11-06] VITALS: Ht 175.2 cm; Wt 89.9 kg
[~2020-11-06 21:14] MED LIST changes: +ZANAFLEX2 M1 PO
[2020-11-06 21:58] VITALS: BP 209/97
[2020-11-06 22:25] VITALS: BP 200/90
[2020-11-06 22:42] VITALS: BP 188/83
[2020-11-06 23:08] LABS: BASO # 0.1 10*3/uL (0.0-0.1); BASO % 1.4 % (0.0-1.0); EOS # 0.2 10*3/uL (0.0-0.4); EOS % 2.8 % (1.0-4.0); HEMATOCRIT 43.5 % (37.0-47.0); LYMPH # 1.8 10*3/uL (1.3-4.4); LYMPH % 28.3 % (27.0-41.0); MEAN CELL VOLUME 100.7 fl (81.0-99.0); MEAN CORPUSCULAR HGB 34.3 pg (27.0-31.0); MEAN PLATELET VOLUME 11.1 fl (9.6-12.3); MONO # 0.7 10*3/uL (0.1-1.0); MONO % 10.7 % (3.0-9.0); NEUT # 3.7 10*3/uL (2.3-7.9); NEUT % 56.8 % (47.0-73.0); PLATELET COUNT AUTOMATED 94 10*3/uL (130-400); RED BLOOD COUNT 4.32 10*6/uL (4.10-5.10); RED CELL DISTRI WIDTH 14.9 % (0-14.5); WHITE BLOOD COUNT 6.5 10*3/uL (4.8-10.8)
[2020-11-06 23:23] LABS: ALBUMIN 3.3 gm/dl (3.1-4.5); ALKALINE PHOSPHATASE 279 U/L (45-117); BUN 6 mg/dl (7-24); CHLORIDE 112 mmol/L (98-107); CREATININE 0.49 mg/dL (0.55-1.02); POTASSIUM 3.5 mmol/L (3.5-5.1); SGOT/AST 50 IU/L (3-35); SODIUM 142 mmol/L (136-145); TOTAL PROTEIN 6.9 gm/dL (6.4-8.2)
[2020-11-06 23:27] LABS: SGPT/ALT 50 U/L (12-78)
[2020-11-06 23:57] LABS: BILIRUBIN Negative (Negative); BLOOD Negative (Negative); CLARITY Cloudy (Clear); COLOR Dark Yellow (Yellow); GLUCOSE Negative (Negative); KETONE Trace (Negative); LEUKO ESTERASE 1+ (Negative); NITRITE Negative (Negative)
[2020-11-07 00:08] LABS: URINE AMPHETAMINES < 1000 (1000ng/ml); URINE BARBITURATES < 200 (200ng/ml); URINE BENZODIAZEPINES < 200 (200ng/ml); URINE CANNABINOIDS (THC) < 50 (50ng/ml); URINE COCAINE < 300 (300ng/ml); URINE METHADONE < 300 (300ng/ml); URINE OPIATES < 300 (300ng/ml)
[2020-11-07 00:09] LABS: URINE PHENCYCLIDINE < 25 (25ng/ml)
[2020-11-07 00:11] LABS: BACTERIA 1+
[2020-11-07 01:03] LABS: ACT PARTIAL THROMBO TIME 28.1 SECONDS (20.0-32.1); INTERNATIONAL NORM RATIO 1.2 (2.0-3.5)
[2020-11-07 02:23] VITALS: BP 163/81
[2020-11-07 06:07] VITALS: BP 174/78
[2020-11-07 06:18] LABS: ALBUMIN 3.2 gm/dl (3.1-4.5); BUN 7 mg/dl (7-24); CHLORIDE 112 mmol/L (98-107); CREATININE 0.54 mg/dL (0.55-1.02); POTASSIUM 3.7 mmol/L (3.5-5.1); SGOT/AST 50 IU/L (3-35); SGPT/ALT 48 U/L (12-78); SODIUM 141 mmol/L (136-145); TOTAL PROTEIN 6.7 gm/dL (6.4-8.2)
[2020-11-07 06:19] LABS: ALKALINE PHOSPHATASE 244 U/L (45-117); BASO # 0.1 10*3/uL (0.0-0.1); BASO % 1.3 % (0.0-1.0); EOS # 0.2 10*3/uL (0.0-0.4); EOS % 3.1 % (1.0-4.0); HEMATOCRIT 43.1 % (37.0-47.0); LYMPH % 33.8 % (27.0-41.0); MEAN CORPUSCULAR HGB 33.4 pg (27.0-31.0); MEAN CORPUSCULAR HGB CONC 33.4 g/dl (33.0-37.0); MEAN PLATELET VOLUME 11.6 fl (9.6-12.3); MONO # 0.6 10*3/uL (0.1-1.0); MONO % 9.3 % (3.0-9.0); NEUT # 3.2 10*3/uL (2.3-7.9); NEUT % 52.3 % (47.0-73.0); PLATELET COUNT AUTOMATED 95 10*3/uL (130-400); RED BLOOD COUNT 4.31 10*6/uL (4.10-5.10); RED CELL DISTRI WIDTH 14.9 % (0-14.5)
[2020-11-07 12:30] VITALS: BP 212/89
[2020-11-07 16:48] VITALS: BP 153/71
[2020-11-07 17:00] VITALS: BP 169/71
== END 2020-11-07 17:30 | disposition left against medical advice (07) | DRG 442 ==
LOC: ED 21:14 → EDHOLD 11-07 00:44 → 5E 11-07 17:02
PROVIDERS: Nurse Practitioner Family; Student in an Organized Health Care Education/Training Program; ADMIT Internal Medicine; ATTEND Internal Medicine
DX: K72.90 Hepatic failure, unspecified without coma (principal); F33.1 Major depressive disorder, recurrent, moderate; F90.9 Attention-deficit hyperactivity disorder, unspecified type; E78.5 Hyperlipidemia, unspecified; I10 Essential (primary) hypertension; F41.9 Anxiety disorder, unspecified; E03.9 Hypothyroidism, unspecified; F17.210 Nicotine dependence, cigarettes, uncomplicated; G43.909 Migraine, unspecified, not intractable, without status migrainosus; I67.1 Cerebral aneurysm, nonruptured; R56.9 Unspecified convulsions; S91.001A Unspecified open wound, right ankle, initial encounter; X58.XXXA Exposure to other specified factors, initial encounter; Y93.89 Activity, other specified; Y92.89 Other specified places as the place of occurrence of the external cause; Y99.8 Other external cause status; Z79.899 Other long term (current) drug therapy; Z79.890 Hormone replacement therapy; Z91.041 Radiographic dye allergy status; Z90.49 Acquired absence of other specified parts of digestive tract; Z82.49 Family history of ischemic heart disease and other diseases of the circulatory system; Z80.0 Family history of malignant neoplasm of digestive organs; Z53.29 Procedure and treatment not carried out because of patient's decision for other reasons

== ENCOUNTER 2020-11-10 19:38 | Inpatient (IN) | payer MEDICARE, MEDICAID ==
[~2020-11-10] VITALS: Ht 170.1 cm; Wt 90.7 kg
[2020-11-10 19:44] VITALS: BP 173/81
[2020-11-10 20:03] LABS: BASO # 0.1 10*3/uL (0.0-0.1); EOS # 0.3 10*3/uL (0.0-0.4); EOS % 3.3 % (1.0-4.0); HEMATOCRIT 45.2 % (37.0-47.0); LYMPH % 29.9 % (27.0-41.0); MEAN CELL VOLUME 100.9 fl (81.0-99.0); MEAN CORPUSCULAR HGB 34.6 pg (27.0-31.0); MEAN CORPUSCULAR HGB CONC 34.3 g/dl (33.0-37.0); MEAN PLATELET VOLUME 11.2 fl (9.6-12.3); MONO # 0.9 10*3/uL (0.1-1.0); MONO % 9.1 % (3.0-9.0); NEUT # 5.6 10*3/uL (2.3-7.9); NEUT % 56.4 % (47.0-73.0); PLATELET COUNT AUTOMATED 109 10*3/uL (130-400); RED BLOOD COUNT 4.48 10*6/uL (4.10-5.10); RED CELL DISTRI WIDTH 14.9 % (0-14.5); WHITE BLOOD COUNT 9.9 10*3/uL (4.8-10.8)
[2020-11-10 21:00] LABS: ALBUMIN 3.6 gm/dl (3.1-4.5); ALKALINE PHOSPHATASE 251 U/L (45-117); BUN 7 mg/dl (7-24); CHLORIDE 110 mmol/L (98-107); CREATININE 0.52 mg/dL (0.55-1.02); POTASSIUM 3.7 mmol/L (3.5-5.1); SGOT/AST 57 IU/L (3-35); SGPT/ALT 55 U/L (12-78); SODIUM 140 mmol/L (136-145); TOTAL PROTEIN 7.4 gm/dL (6.4-8.2)
[2020-11-10 21:42] LABS: BILIRUBIN Negative (Negative); BLOOD Negative (Negative); CLARITY Cloudy (Clear); COLOR Yellow (Yellow); GLUCOSE Negative (Negative); KETONE Negative (Negative); LEUKO ESTERASE 2+ (Negative); NITRITE Negative (Negative); PH 6.5 (4.5-8.0); SPECIFIC GRAVITY 1.015 (1.001-1.030); UROBILINOGEN >= 8.0 E.U./dl (0.0-1.0)
[2020-11-10 21:51] LABS: URINE AMPHETAMINES < 1000 (1000ng/ml); URINE BARBITURATES < 200 (200ng/ml); URINE BENZODIAZEPINES < 200 (200ng/ml); URINE CANNABINOIDS (THC) < 50 (50ng/ml); URINE COCAINE < 300 (300ng/ml); URINE METHADONE < 300 (300ng/ml); URINE OPIATES < 300 (300ng/ml); URINE PHENCYCLIDINE < 25 (25ng/ml)
[2020-11-10 21:55] LABS: BACTERIA 2+; EPITHELIAL CELLS 51-100; RBC 0-2 rbc/hpf (0-2)
[2020-11-11 06:49] LABS: BASO # 0.1 10*3/uL (0.0-0.1); BASO % 1.3 % (0.0-1.0); EOS # 0.2 10*3/uL (0.0-0.4); EOS % 2.8 % (1.0-4.0); HEMATOCRIT 45.5 % (37.0-47.0); LYMPH # 2.5 10*3/uL (1.3-4.4); MEAN CELL VOLUME 99.8 fl (81.0-99.0); MEAN CORPUSCULAR HGB 33.6 pg (27.0-31.0); MEAN CORPUSCULAR HGB CONC 33.6 g/dl (33.0-37.0); MEAN PLATELET VOLUME 11.1 fl (9.6-12.3); MONO # 0.8 10*3/uL (0.1-1.0); MONO % 8.8 % (3.0-9.0); NEUT # 5.1 10*3/uL (2.3-7.9); NEUT % 57.9 % (47.0-73.0); PLATELET COUNT AUTOMATED 117 10*3/uL (130-400); RED BLOOD COUNT 4.56 10*6/uL (4.10-5.10); RED CELL DISTRI WIDTH 14.8 % (0-14.5); WHITE BLOOD COUNT 8.7 10*3/uL (4.8-10.8)
[2020-11-11 07:18] LABS: INTERNATIONAL NORM RATIO 1.2 (2.0-3.5)
[2020-11-11 07:22] LABS: VITAMIN D, 25-HYDROXY 24.3 ng/mL (30-100)
[2020-11-11 07:28] LABS: ALBUMIN 3.6 gm/dl (3.1-4.5); BUN 7 mg/dl (7-24); CHLORIDE 110 mmol/L (98-107); POTASSIUM 3.9 mmol/L (3.5-5.1); SGOT/AST 58 IU/L (3-35); SODIUM 140 mmol/L (136-145); TOTAL PROTEIN 7.3 gm/dL (6.4-8.2)
[2020-11-11 07:33] LABS: ALKALINE PHOSPHATASE 246 U/L (45-117); CHOLESTEROL 166 mg/dL (<200); CREATININE 0.49 mg/dL (0.55-1.02); HDL CHOLESTEROL 51 mg/dl (40-60); LDL CHOLESTEROL 95 mg/dL (9-159); SGPT/ALT 51 U/L (12-78); TRIGLYCERIDES 100 mg/dl (<150); VLDL CHOLESTEROL 20 mg/dL (6-40)
[2020-11-11 08:52] VITALS: BP 189/91
[2020-11-11] MEDS ORDERED: BIOTIN1 M1 PO (09:21)
[2020-11-11] MEDS ORDERED: LEVETIRACETAM500 MG PO (09:48)
[2020-11-11] MEDS ORDERED: LEVOTHYROXINE75 MCG PO (09:48)
[2020-11-11] MEDS ORDERED: LOSARTAN POTAS100 M1 PO (09:49)
[2020-11-11] MEDS ORDERED: ZOCOR20 MG PO (09:49)
[2020-11-11 10:00] VITALS: BP 174/71
[2020-11-11 12:30] VITALS: BP 138/69
[2020-11-11 16:00] VITALS: BP 147/73
[2020-11-11 16:45] VITALS: BP 133/62
[2020-11-11 20:00] VITALS: BP 141/69
[2020-11-12 04:00] VITALS: BP 143/63
[2020-11-12 06:25] LABS: BASO # 0.1 10*3/uL (0.0-0.1); BASO % 1.2 % (0.0-1.0); EOS # 0.3 10*3/uL (0.0-0.4); HEMATOCRIT 42.1 % (37.0-47.0); LYMPH # 2.6 10*3/uL (1.3-4.4); LYMPH % 37.6 % (27.0-41.0); MEAN CORPUSCULAR HGB 34.1 pg (27.0-31.0); MEAN CORPUSCULAR HGB CONC 32.8 g/dl (33.0-37.0); MONO # 0.6 10*3/uL (0.1-1.0); MONO % 8.4 % (3.0-9.0); NEUT # 3.2 10*3/uL (2.3-7.9); NEUT % 47.5 % (47.0-73.0); PLATELET COUNT AUTOMATED 106 10*3/uL (130-400); RED BLOOD COUNT 4.05 10*6/uL (4.10-5.10); WHITE BLOOD COUNT 6.8 10*3/uL (4.8-10.8)
[2020-11-12 06:36] LABS: ALKALINE PHOSPHATASE 210 U/L (45-117); BUN 10 mg/dl (7-24); CHLORIDE 112 mmol/L (98-107); CREATININE 0.59 mg/dL (0.55-1.02); POTASSIUM 3.6 mmol/L (3.5-5.1); SGOT/AST 49 IU/L (3-35); SGPT/ALT 43 U/L (12-78); SODIUM 141 mmol/L (136-145); TOTAL PROTEIN 6.2 gm/dL (6.4-8.2)
[2020-11-12 08:00] VITALS: BP 144/77
[2020-11-12 12:00] VITALS: BP 128/64
[2020-11-12 16:00] VITALS: BP 131/64
[2020-11-12 20:00] VITALS: BP 130/71
[2020-11-13] VITALS (9 sets, daily range): BP systolic 87–170; BP diastolic 37–80
[2020-11-13 06:21] LABS: ALBUMIN 2.8 gm/dl (3.1-4.5); ALKALINE PHOSPHATASE 225 U/L (45-117); BUN 11 mg/dl (7-24); CHLORIDE 112 mmol/L (98-107); CREATININE 0.48 mg/dL (0.55-1.02); POTASSIUM 3.7 mmol/L (3.5-5.1); SGOT/AST 47 IU/L (3-35); SGPT/ALT 43 U/L (12-78); SODIUM 142 mmol/L (136-145); TOTAL PROTEIN 5.9 gm/dL (6.4-8.2)
[2020-11-13 06:21] LABS: BASO # 0.1 10*3/uL (0.0-0.1); EOS # 0.3 10*3/uL (0.0-0.4); EOS % 4.7 % (1.0-4.0); LYMPH # 2.8 10*3/uL (1.3-4.4); LYMPH % 40.8 % (27.0-41.0); MEAN CELL VOLUME 102.8 fl (81.0-99.0); MEAN CORPUSCULAR HGB 33.8 pg (27.0-31.0); MEAN CORPUSCULAR HGB CONC 32.9 g/dl (33.0-37.0); MEAN PLATELET VOLUME 11.6 fl (9.6-12.3); MONO # 0.7 10*3/uL (0.1-1.0); MONO % 10.4 % (3.0-9.0); NEUT # 2.9 10*3/uL (2.3-7.9); PLATELET COUNT AUTOMATED 99 10*3/uL (130-400); RED BLOOD COUNT 3.99 10*6/uL (4.10-5.10); RED CELL DISTRI WIDTH 14.6 % (0-14.5); WHITE BLOOD COUNT 6.7 10*3/uL (4.8-10.8)
[2020-11-14 06:07] LABS: ALKALINE PHOSPHATASE 239 U/L (45-117); BUN 8 mg/dl (7-24); CHLORIDE 113 mmol/L (98-107); CREATININE 0.52 mg/dL (0.55-1.02); POTASSIUM 3.9 mmol/L (3.5-5.1); SGOT/AST 50 IU/L (3-35); SODIUM 144 mmol/L (136-145); TOTAL PROTEIN 6.1 gm/dL (6.4-8.2)
[2020-11-14 06:11] LABS: SGPT/ALT 45 U/L (12-78)
[2020-11-14 06:21] LABS: BASO # 0.1 10*3/uL (0.0-0.1); BASO % 1.2 % (0.0-1.0); EOS # 0.3 10*3/uL (0.0-0.4); HEMATOCRIT 42.4 % (37.0-47.0); LYMPH # 2.5 10*3/uL (1.3-4.4); LYMPH % 41.1 % (27.0-41.0); MEAN CELL VOLUME 102.9 fl (81.0-99.0); MEAN CORPUSCULAR HGB 33.5 pg (27.0-31.0); MEAN CORPUSCULAR HGB CONC 32.5 g/dl (33.0-37.0); MEAN PLATELET VOLUME 11.7 fl (9.6-12.3); MONO # 0.5 10*3/uL (0.1-1.0); MONO % 8.7 % (3.0-9.0); NEUT # 2.7 10*3/uL (2.3-7.9); NEUT % 43.8 % (47.0-73.0); PLATELET COUNT AUTOMATED 95 10*3/uL (130-400); RED BLOOD COUNT 4.12 10*6/uL (4.10-5.10); RED CELL DISTRI WIDTH 14.4 % (0-14.5); WHITE BLOOD COUNT 6.1 10*3/uL (4.8-10.8)
[2020-11-14 08:00] VITALS: BP 142/63
[2020-11-14 12:00] VITALS: BP 141/68
[2020-11-14 16:00] VITALS: BP 132/75; BP 154/63
[2020-11-14 19:23] LABS: ACID FAST SPEC PROCESSING Tissue Grinding (.)
[2020-11-14 20:00] VITALS: BP 161/73
[2020-11-15] VITALS: BP 127/90
[2020-11-15 06:20] LABS: ALBUMIN 2.3 gm/dl (3.1-4.5); CHLORIDE 114 mmol/L (98-107); CREATININE 0.42 mg/dL (0.55-1.02); POTASSIUM 4.2 mmol/L (3.5-5.1); SGOT/AST 53 IU/L (3-35); SGPT/ALT 42 U/L (12-78); SODIUM 138 mmol/L (136-145); TOTAL PROTEIN 5.7 gm/dL (6.4-8.2)
[2020-11-15 06:23] LABS: BUN 8 mg/dl (7-24)
[2020-11-15 06:30] LABS: ALKALINE PHOSPHATASE 190 U/L (45-117)
[2020-11-15 06:48] LABS: BASO # 0.1 10*3/uL (0.0-0.1); BASO % 1.2 % (0.0-1.0); EOS # 0.3 10*3/uL (0.0-0.4); HEMATOCRIT 40.2 % (37.0-47.0); LYMPH # 2.4 10*3/uL (1.3-4.4); LYMPH % 40.4 % (27.0-41.0); MEAN CORPUSCULAR HGB 33.9 pg (27.0-31.0); MEAN CORPUSCULAR HGB CONC 33.6 g/dl (33.0-37.0); MEAN PLATELET VOLUME 11.4 fl (9.6-12.3); MONO # 0.5 10*3/uL (0.1-1.0); NEUT # 2.7 10*3/uL (2.3-7.9); NEUT % 44.2 % (47.0-73.0); PLATELET COUNT AUTOMATED 93 10*3/uL (130-400); RED BLOOD COUNT 3.98 10*6/uL (4.10-5.10); RED CELL DISTRI WIDTH 14.2 % (0-14.5)
[2020-11-15 08:00] VITALS: BP 124/77; BP 136/67
[2020-11-15 12:00] VITALS: BP 130/78
[2020-11-15 16:00] VITALS: BP 144/61
[2020-11-15 20:00] VITALS: BP 146/56
[2020-11-16] VITALS: BP 146/61
[2020-11-16 08:00] VITALS: BP 145/60
[2020-11-16 12:00] VITALS: BP 149/65
[2020-11-16 16:00] VITALS: BP 148/60
[2020-11-16 20:00] VITALS: BP 137/63
[2020-11-17] VITALS: BP 140/50
[2020-11-17 08:00] VITALS: BP 183/68
[2020-11-17 12:00] VITALS: BP 160/70
[2020-11-17] MEDS ORDERED: VANCOMYCIN HC1.25 GM IV (13:04)
[2020-11-17] MEDS ORDERED: CEFTRIAXON1 GM/50 ML IV (13:04)
[2020-11-17] MEDS ORDERED: LACTULOSE20 GM/30 M PO (13:04)
[2020-11-17] MEDS ORDERED: VITAMIN D350 MC2 PO (13:04)
[2020-11-17 16:06] VITALS: BP 149/68
[2020-11-17 20:00] VITALS: BP 148/60
[2020-11-18] VITALS: BP 129/53
[2020-11-18 06:18] LABS: BASO # 0.1 10*3/uL (0.0-0.1); BASO % 1.4 % (0.0-1.0); EOS # 0.3 10*3/uL (0.0-0.4); EOS % 5.2 % (1.0-4.0); HEMATOCRIT 39.1 % (37.0-47.0); LYMPH # 2.1 10*3/uL (1.3-4.4); LYMPH % 32.8 % (27.0-41.0); MEAN CELL VOLUME 104.3 fl (81.0-99.0); MEAN CORPUSCULAR HGB 34.1 pg (27.0-31.0); MEAN CORPUSCULAR HGB CONC 32.7 g/dl (33.0-37.0); MEAN PLATELET VOLUME 11.7 fl (9.6-12.3); MONO # 0.6 10*3/uL (0.1-1.0); MONO % 9.7 % (3.0-9.0); NEUT # 3.2 10*3/uL (2.3-7.9); NEUT % 50.6 % (47.0-73.0); PLATELET COUNT AUTOMATED 90 10*3/uL (130-400); RED BLOOD COUNT 3.75 10*6/uL (4.10-5.10); RED CELL DISTRI WIDTH 14.4 % (0-14.5); WHITE BLOOD COUNT 6.4 10*3/uL (4.8-10.8)
[2020-11-18 06:24] LABS: ALBUMIN 2.8 gm/dl (3.1-4.5); ALKALINE PHOSPHATASE 200 U/L (45-117); BUN 8 mg/dl (7-24); CHLORIDE 114 mmol/L (98-107); CREATININE 0.41 mg/dL (0.55-1.02); POTASSIUM 3.7 mmol/L (3.5-5.1); SGOT/AST 49 IU/L (3-35); SGPT/ALT 42 U/L (12-78); SODIUM 143 mmol/L (136-145); TOTAL PROTEIN 5.7 gm/dL (6.4-8.2)
[2020-11-18 08:00] VITALS: BP 144/64
[2020-11-18 12:00] VITALS: BP 146/59
[2020-12-28 07:06] LABS: ACID FAST CULTURE Negative (.)
== END 2020-11-18 15:06 | DRG 981 ==
LOC: ED 19:38 → EDHOLD 22:23 → 5E 11-11 08:04 → ICCU 11-11 16:22 → 4E 11-14 12:45
PROVIDERS: Family Medicine; Hospitalist; Internal Medicine; Podiatrist; Specialist; ADMIT Student in an Organized Health Care Education/Training Program; ATTEND Student in an Organized Health Care Education/Training Program
PROC: 0QBQ0ZZ Excision of Right Toe Phalanx, Open Approach (ICD-10-PCS; principal; 2020-11-13)
PROC: 2W1SX6Z Compression of Right Foot using Pressure Dressing (ICD-10-PCS; 2020-11-13)
PROC: 02H633Z Insertion of Infusion Device into Right Atrium, Percutaneous Approach (ICD-10-PCS; 2020-11-15)
DX: K72.90 Hepatic failure, unspecified without coma (principal); G93.41 Metabolic encephalopathy; M86.8X7 Other osteomyelitis, ankle and foot; N39.0 Urinary tract infection, site not specified; D69.6 Thrombocytopenia, unspecified; K76.0 Fatty (change of) liver, not elsewhere classified; Z20.822 Contact with and (suspected) exposure to COVID-19; F17.210 Nicotine dependence, cigarettes, uncomplicated; R73.9 Hyperglycemia, unspecified; I10 Essential (primary) hypertension; E03.9 Hypothyroidism, unspecified; E78.5 Hyperlipidemia, unspecified; R74.01 Elevation of levels of liver transaminase levels; R56.9 Unspecified convulsions; F41.9 Anxiety disorder, unspecified; F31.9 Bipolar disorder, unspecified; F10.20 Alcohol dependence, uncomplicated; Z90.49 Acquired absence of other specified parts of digestive tract; Z91.041 Radiographic dye allergy status; Z79.82 Long term (current) use of aspirin; Z79.899 Other long term (current) drug therapy; Z82.49 Family history of ischemic heart disease and other diseases of the circulatory system; Z71.6 Tobacco abuse counseling

== ENCOUNTER → 2020-12-12 | Outpatient (CLI) | payer MEDICARE, MEDICAID ==
[~2020-12-12] MED LIST changes: +BIOTIN1 M1 PO; +CEFTRIAXON1 GM/50 ML IV; +LACTULOSE20 GM/30 M PO; +LEVOTHYROXINE75 MCG PO; +VANCOMYCIN HC1.25 GM IV; +VITAMIN D350 MC2 PO; +ZOCOR20 MG PO
== END | disposition home or self-care (01) ==
LOC: CT 15:00
PROVIDERS: ATTEND Psychiatry & Neurology Neurology
DX: I67.1 Cerebral aneurysm, nonruptured (principal); G93.89 Other specified disorders of brain; I65.23 Occlusion and stenosis of bilateral carotid arteries; Z95.828 Presence of other vascular implants and grafts

== ENCOUNTER 2021-09-01 20:06 | Observation (INO) | payer OTHER, MEDICAID ==
[~2021-09-01] VITALS: Ht 172.7 cm; Wt 103.4 kg
[2021-09-01 20:15] VITALS: BP 153/73
[2021-09-01 20:54] LABS: BASO # 0.1 10*3/uL (0.0-0.1); BASO % 1.3 % (0.0-1.0); EOS # 0.3 10*3/uL (0.0-0.4); EOS % 4.7 % (1.0-4.0); HEMATOCRIT 39.1 % (37.0-47.0); LYMPH # 1.8 10*3/uL (1.3-4.4); LYMPH % 25.3 % (27.0-41.0); MEAN CELL VOLUME 105.1 fl (81.0-99.0); MEAN CORPUSCULAR HGB 34.7 pg (27.0-31.0); MEAN PLATELET VOLUME 11.2 fl (9.6-12.3); MONO # 0.9 10*3/uL (0.1-1.0); MONO % 12.1 % (3.0-9.0); NEUT % 56.2 % (47.0-73.0); PLATELET COUNT AUTOMATED 99 10*3/uL (130-400); RED BLOOD COUNT 3.72 10*6/uL (4.10-5.10); RED CELL DISTRI WIDTH 16.8 % (0-14.5)
[2021-09-01 21:09] LABS: ALBUMIN 2.2 gm/dl (3.1-4.5); ALKALINE PHOSPHATASE 214 U/L (45-117); BUN 9 mg/dl (7-24); CHLORIDE 114 mmol/L (98-107); CREATININE 0.57 mg/dL (0.55-1.02); LIPASE 111 U/L (73-393); POTASSIUM 3.7 mmol/L (3.5-5.1); SGPT/ALT 90 U/L (12-78); SODIUM 141 mmol/L (136-145); TOTAL PROTEIN 6.4 gm/dL (6.4-8.2)
[2021-09-01 21:12] LABS: SGOT/AST 246 IU/L (3-35)
[2021-09-02 03:10] VITALS: BP 147/61
[2021-09-02 05:04] LABS: ALBUMIN 2.5 gm/dl (3.1-4.5); ALKALINE PHOSPHATASE 216 U/L (45-117); BUN 8 mg/dl (7-24); CHLORIDE 111 mmol/L (98-107); CREATININE 0.62 mg/dL (0.55-1.02); POTASSIUM 3.6 mmol/L (3.5-5.1); SGOT/AST 271 IU/L (3-35); SGPT/ALT 98 U/L (12-78); SODIUM 142 mmol/L (136-145); TOTAL PROTEIN 6.8 gm/dL (6.4-8.2)
[2021-09-02 06:11] LABS: BASO # 0.1 10*3/uL (0.0-0.1); BASO % 1.5 % (0.0-1.0); EOS # 0.3 10*3/uL (0.0-0.4); EOS % 3.8 % (1.0-4.0); LYMPH # 2.1 10*3/uL (1.3-4.4); LYMPH % 28.3 % (27.0-41.0); MEAN CELL VOLUME 102.6 fl (81.0-99.0); MEAN CORPUSCULAR HGB 34.9 pg (27.0-31.0); MEAN PLATELET VOLUME 11.8 fl (9.6-12.3); MONO # 0.9 10*3/uL (0.1-1.0); MONO % 11.7 % (3.0-9.0); NEUT % 54.4 % (47.0-73.0); PLATELET COUNT AUTOMATED 102 10*3/uL (130-400); RED CELL DISTRI WIDTH 16.6 % (0-14.5); WHITE BLOOD COUNT 7.3 10*3/uL (4.8-10.8)
[2021-09-02 06:17] LABS: ACT PARTIAL THROMBO TIME 29.6 SECONDS (20.0-32.1); INTERNATIONAL NORM RATIO 1.3 (2.0-3.5)
[2021-09-02 07:35] VITALS: BP 130/59
[2021-09-02] MEDS ORDERED: COZAAR50 M1 PO (11:59)
[2021-09-02] MEDS ORDERED: FUROSEMIDE40 MG PO (11:59)
[2021-09-02] MEDS ORDERED: SPIRONOLACTONE100 MG PO (11:59)
[2021-09-02 12:30] VITALS: BP 152/94
== END 2021-09-02 12:45 | disposition home or self-care (01) ==
LOC: ED 20:06 → EDHOLD 22:07
PROVIDERS: Internal Medicine; Nurse Practitioner Family; ADMIT Internal Medicine; ATTEND Internal Medicine
DX: K70.31 Alcoholic cirrhosis of liver with ascites (principal); Z79.899 Other long term (current) drug therapy

== ENCOUNTER 2021-10-05 17:05 | Inpatient (IN) | payer OTHER, MEDICAID ==
[~2021-10-05] VITALS: Ht 172.7 cm; Wt 97.1 kg
[~2021-10-05 17:05] MED LIST changes: +COZAAR50 M1 PO; +FUROSEMIDE40 MG PO; +SPIRONOLACTONE100 MG PO
[2021-10-05 18:03] LABS: BASO # 0.1 10*3/uL (0.0-0.1); BASO % 0.9 % (0.0-1.0); EOS # 0.3 10*3/uL (0.0-0.4); EOS % 2.6 % (1.0-4.0); HEMATOCRIT 42.1 % (37.0-47.0); LYMPH # 1.8 10*3/uL (1.3-4.4); LYMPH % 14.8 % (27.0-41.0); MEAN CELL VOLUME 97.7 fl (81.0-99.0); MEAN CORPUSCULAR HGB 34.1 pg (27.0-31.0); MEAN CORPUSCULAR HGB CONC 34.9 g/dl (33.0-37.0); MEAN PLATELET VOLUME 10.9 fl (9.6-12.3); MONO # 1.5 10*3/uL (0.1-1.0); MONO % 12.1 % (3.0-9.0); NEUT # 8.6 10*3/uL (2.3-7.9); PLATELET COUNT AUTOMATED 148 10*3/uL (130-400); RED BLOOD COUNT 4.31 10*6/uL (4.10-5.10); WHITE BLOOD COUNT 12.4 10*3/uL (4.8-10.8)
[2021-10-05 19:37] VITALS: BP 143/70
[2021-10-05 20:12] LABS: ALBUMIN 2.3 gm/dl (3.1-4.5); POTASSIUM 3.9 mmol/L (3.5-5.1); TOTAL PROTEIN 6.8 gm/dL (6.4-8.2)
[2021-10-05 20:17] LABS: CREATININE 1.32 mg/dL (0.55-1.02)
[2021-10-05 20:55] LABS: BODY FLUID WBC 307 /uL
[2021-10-05 20:59] LABS: ACT PARTIAL THROMBO TIME 27.9 SECONDS (20.0-32.1); INTERNATIONAL NORM RATIO 1.2 (2.0-3.5)
[2021-10-05 21:50] LABS: BF LYMPHOCYTES 73 %; BF MONOCYTES 9 %; BF NEUTROPHILS 17 %
[2021-10-05 22:37] LABS: BILIRUBIN Negative (Negative); BLOOD 3+ (Negative); CLARITY Cloudy (Clear); COLOR Yellow (Yellow); GLUCOSE Negative (Negative); KETONE Negative (Negative); LEUKO ESTERASE 3+ (Negative); NITRITE Negative (Negative); PH 5.5 (4.5-8.0); SPECIFIC GRAVITY 1.015 (1.001-1.030)
[2021-10-05 23:09] LABS: BACTERIA 3+; EPITHELIAL CELLS 21-30; RBC 31-40 rbc/hpf (0-2); WBC 21-30 wbc/hpf (0-5)
[2021-10-06] VITALS (7 sets, daily range): BP systolic 101–159; BP diastolic 56–71
[2021-10-06 04:30] LABS: BASO % 0.5 % (0.0-1.0); EOS # 0.2 10*3/uL (0.0-0.4); EOS % 2.2 % (1.0-4.0); HEMATOCRIT 32.5 % (37.0-47.0); LYMPH # 1.6 10*3/uL (1.3-4.4); LYMPH % 19.4 % (27.0-41.0); MEAN CORPUSCULAR HGB 34.3 pg (27.0-31.0); MEAN CORPUSCULAR HGB CONC 35.4 g/dl (33.0-37.0); MEAN PLATELET VOLUME 10.5 fl (9.6-12.3); MONO % 11.9 % (3.0-9.0); NEUT # 5.3 10*3/uL (2.3-7.9); NEUT % 65.5 % (47.0-73.0); RED BLOOD COUNT 3.35 10*6/uL (4.10-5.10); RED CELL DISTRI WIDTH 14.6 % (0-14.5); WHITE BLOOD COUNT 8.2 10*3/uL (4.8-10.8)
[2021-10-06 04:47] LABS: ACT PARTIAL THROMBO TIME 31.7 SECONDS (20.0-32.1); INTERNATIONAL NORM RATIO 1.4 (2.0-3.5); PLATELET COUNT AUTOMATED 91 10*3/uL (130-400)
[2021-10-06 04:50] LABS: ALBUMIN 2.8 gm/dl (3.1-4.5); CREATININE 1.33 mg/dL (0.55-1.02); POTASSIUM 3.8 mmol/L (3.5-5.1); TOTAL PROTEIN 5.9 gm/dL (6.4-8.2)
[2021-10-06 04:54] LABS: THYROID STIM HORMONE (HS) 2.24 uIU/ml (0.358-4.75)
[2021-10-06 07:25] LABS: VITAMIN D, 25-HYDROXY 28.8 ng/mL (30-100)
[2021-10-06] MEDS ORDERED: ZOLOFT100 MG PO (10:21)
[2021-10-07 00:26] VITALS: BP 141/67
[2021-10-07 06:42] LABS: BASO # 0.1 10*3/uL (0.0-0.1); BASO % 0.5 % (0.0-1.0); EOS # 0.2 10*3/uL (0.0-0.4); EOS % 1.8 % (1.0-4.0); HEMATOCRIT 34.1 % (37.0-47.0); MEAN CELL VOLUME 97.2 fl (81.0-99.0); MEAN CORPUSCULAR HGB 34.2 pg (27.0-31.0); MEAN CORPUSCULAR HGB CONC 35.2 g/dl (33.0-37.0); MEAN PLATELET VOLUME 10.4 fl (9.6-12.3); MONO # 0.9 10*3/uL (0.1-1.0); MONO % 8.9 % (3.0-9.0); NEUT # 7.9 10*3/uL (2.3-7.9); NEUT % 78.4 % (47.0-73.0); PLATELET COUNT AUTOMATED 93 10*3/uL (130-400); RED BLOOD COUNT 3.51 10*6/uL (4.10-5.10); RED CELL DISTRI WIDTH 14.6 % (0-14.5); WHITE BLOOD COUNT 10.1 10*3/uL (4.8-10.8)
[2021-10-07 06:55] LABS: INTERNATIONAL NORM RATIO 1.4 (2.0-3.5)
[2021-10-07 07:05] LABS: ALBUMIN 3.2 gm/dl (3.1-4.5); ALKALINE PHOSPHATASE 155 U/L (45-117); CHLORIDE 114 mmol/L (98-107); CREATININE 0.97 mg/dL (0.55-1.02); POTASSIUM 3.9 mmol/L (3.5-5.1); SGOT/AST 41 IU/L (3-35); SGPT/ALT 53 U/L (12-78); SODIUM 140 mmol/L (136-145); TOTAL PROTEIN 6.4 gm/dL (6.4-8.2)
[2021-10-07 07:06] LABS: BUN 24 mg/dl (7-24)
[2021-10-07 08:00] VITALS: BP 157/84
[2021-10-07 12:00] VITALS: BP 143/65
[2021-10-07] MEDS ORDERED: BACTRIM 400-801 EACH PO (13:28)
[2021-10-07] MEDS ORDERED: XIFAXAN550 MG PO (13:28)
[2021-10-07] MEDS ORDERED: LACTULOSE20 GM/30 M PO (13:28)
== END 2021-10-07 14:38 | disposition home or self-care (01) | DRG 871 ==
LOC: ED 17:05 → 5E 20:04 → EDHOLD 20:04 → 5E 10-06 11:08
PROVIDERS: Emergency Medicine; Hospitalist; Internal Medicine; ADMIT Emergency Medicine; ATTEND Emergency Medicine
PROC: 0W9G3ZZ Drainage of Peritoneal Cavity, Percutaneous Approach (ICD-10-PCS; principal; 2021-10-05)
DX: A41.9 Sepsis, unspecified organism (principal); N17.0 Acute kidney failure with tubular necrosis; E43 Unspecified severe protein-calorie malnutrition; E87.2 Acidosis; F33.9 Major depressive disorder, recurrent, unspecified; K70.31 Alcoholic cirrhosis of liver with ascites; K72.90 Hepatic failure, unspecified without coma; R65.20 Severe sepsis without septic shock; R73.9 Hyperglycemia, unspecified; G43.909 Migraine, unspecified, not intractable, without status migrainosus; G40.909 Epilepsy, unspecified, not intractable, without status epilepticus; F41.9 Anxiety disorder, unspecified; I10 Essential (primary) hypertension; X58.XXXA Exposure to other specified factors, initial encounter; E03.9 Hypothyroidism, unspecified; S81.801A Unspecified open wound, right lower leg, initial encounter; E78.5 Hyperlipidemia, unspecified; F90.9 Attention-deficit hyperactivity disorder, unspecified type; K76.0 Fatty (change of) liver, not elsewhere classified; F17.210 Nicotine dependence, cigarettes, uncomplicated; Z90.49 Acquired absence of other specified parts of digestive tract; Z82.49 Family history of ischemic heart disease and other diseases of the circulatory system; Z91.041 Radiographic dye allergy status; Z79.899 Other long term (current) drug therapy; Y93.89 Activity, other specified; Y92.89 Other specified places as the place of occurrence of the external cause; Y99.8 Other external cause status; Z68.32 Body mass index [BMI] 32.0-32.9, adult

== ENCOUNTER → 2021-10-13 | Outpatient (CLI) | payer OTHER, MEDICAID ==
[~2021-10-13] MED LIST changes: +BACTRIM 400-801 EACH PO; +XIFAXAN550 MG PO; +ZOLOFT100 MG PO
== END ==
LOC: WOUNDCARE 01:11
PROVIDERS: ATTEND Nurse Practitioner Family
DX: L97.311 Non-pressure chronic ulcer of right ankle limited to breakdown of skin (principal); I87.8 Other specified disorders of veins; I10 Essential (primary) hypertension; E78.5 Hyperlipidemia, unspecified; E03.9 Hypothyroidism, unspecified; G43.909 Migraine, unspecified, not intractable, without status migrainosus; G40.909 Epilepsy, unspecified, not intractable, without status epilepticus; K70.30 Alcoholic cirrhosis of liver without ascites; F17.200 Nicotine dependence, unspecified, uncomplicated; F90.9 Attention-deficit hyperactivity disorder, unspecified type; Z90.49 Acquired absence of other specified parts of digestive tract; Z87.81 Personal history of (healed) traumatic fracture